=== PATIENT | male | born 2000 | race Two or more races ===

== ENCOUNTER 2024-12-28 16:07 | Emergency (ER) | payer OTHER ==
[~2024-12-28] VITALS: Ht 167.6 cm; Wt 113.4 kg
[2024-12-28] MEDS ORDERED: TETRACAINE HCL 20 DR/ML DROPS OP STA (17:55)
[2024-12-28] MEDS ORDERED: FAMOTIDINE/PF 20 MG/2 ML VIAL IV PUSH STA (17:55)
[2024-12-28] MEDS ORDERED: FAMOTIDINE/PF 20 MG/2 ML VIAL ONE (18:08)
[2024-12-28 19:52] LABS: CALCIUM 8.8 mg/dL (8.5-10.1); GFR 92.6; POTASSIUM 4.47 mEq/L (3.5-5.1)
[2024-12-28 20:03] LABS: MEAN CELL VOLUME 82.5 fL (80.0-100.00); MEAN CORPUSCULAR HEMOGLOBIN 28.6 pg (27.00-32.0); MEAN CORPUSCULAR HGB CONC 34.7 g/dl (32.0-36.0); PLATELET COUNT 168 K/uL (150-450); RED BLOOD COUNT 5.94 M/uL (4.00-6.00)
== END 2024-12-28 21:20 | disposition home or self-care (01) ==
LOC: ER 16:09
PROVIDERS: General Practice
DX: H57.10 Ocular pain, unspecified eye (principal)